=== PATIENT | female | born 1955 | race Hispanic/Latino ===

== ENCOUNTER → 2018-11-15 | Outpatient (CLI) | payer OTHER ==
--- NOTE | 2018-11-15 11:29 | Diagnostic Imaging Report ---
EXAMINATION: CHEST 2 VIEWS INDICATION: COPD COMPARISON: None FINDINGS: TUBES and LINES: None. LUNGS: Lungs are mildly hyperinflated. Mild bronchial wall thickening. There is no evidence of pneumonia or pulmonary edema. PLEURA: No pleural effusion or pneumothorax. HEART AND MEDIASTINUM: The cardiomediastinal silhouette is unremarkable. BONES AND SOFT TISSUES: No acute osseous amount he. Partially seen cervical spine fixation hardware. UPPER ABDOMEN: No free air under the diaphragm. IMPRESSION: Mild bronchial wall thickening, which may reflect bronchitis in the appropriate clinical setting. Signed by: Dr. Dawn Holden MD on 11/15/2018 11:25 AM
== END ==
LOC: RAD 10:33
PROVIDERS: ATTEND Internal Medicine Critical Care Medicine
DX: J44.9 Chronic obstructive pulmonary disease, unspecified (principal)
CPT/HCPCS: 71046

== ENCOUNTER → 2020-08-12 | Outpatient (CLI) | payer MEDICARE | LOC: RAD 09:43 | PROVIDERS: ATTEND Internal Medicine Critical Care Medicine | DX: R50.9 Fever, unspecified (principal); R06.02 Shortness of breath | CPT/HCPCS: 71046 ==